=== PATIENT | male | born 1995 | race Caucasian/White ===

== ENCOUNTER 2016-07-01 18:13 | Emergency (ER) | payer BC ==
[~2016-07-01] VITALS: Ht 180.3 cm; Wt 81.8 kg
[2016-07-01 18:19] VITALS: TEMP 98.6
[2016-07-01] MEDS ORDERED: PREDNISONE20 MG PO (20:19)
[2016-07-01 20:30] VITALS: BP 140/85; PULSE 97
== END 2016-07-01 20:31 | disposition home or self-care (01) ==
LOC: COL.ER 18:13
DX: J20.9 Acute bronchitis, unspecified (principal); J45.909 Unspecified asthma, uncomplicated
CPT/HCPCS: J7512